=== PATIENT | female | born 1950 | race Caucasian/White ===

== ENCOUNTER 2024-08-12 11:15 | Day surgery (SDC) | payer MEDICARE ==
[2024-08-08 13:26] LABS: BASOPHILS % (AUTO) 0.5 % (0-1); EOSINOPHILS % (AUTO) 0.1 % (0-6); HEMATOCRIT 41.2 % (35.0-45.0); HEMOGLOBIN 13.6 g/dl (12.0-16.0); LYMPHOCYTES # (AUTO) 2.4 X10'3 (1.1-4.8); LYMPHOCYTES % (AUTO) 26.7 % (21-51); MEAN CORPUSCULAR HEMOGLOBIN 31.1 PG (27.0-31.0); MEAN CORPUSCULAR VOLUME 94.5 FL (78-98); MEAN PLATELET VOLUME 9.3 FL (7.4-10.4); MONOCYTES % (AUTO) 10.5 % (2-12); NEUTROPHILS # (AUTO) 5.7 X10'3 (1.8-7.7); NEUTROPHILS % (AUTO) 62.2 % (42-75); PLATELET COUNT 283 X10'3 (140-440); RED BLOOD COUNT 4.36 X10'6 (4.20-5.60); RED CELL DISTRIBUTION WIDTH 15.6 % (11.5-14.5); WHITE BLOOD COUNT 9.1 X10'3 (4.5-11.0)
[2024-08-08 13:37] LABS: APTT 26 SECONDS (22-32); INR 1.1 INR; PROTHROMBIN TIME 11.8 SECONDS (9.0-12.0)
[2024-08-08 13:44] LABS: ALBUMIN 3.6 G/DL (3.4-5.0); ANION GAP 6 (8-16); BLOOD UREA NITROGEN 27 MG/DL (7-18); BUN/CREATININE RATIO 28.7 (10.0-20.0); CALCIUM 8.6 MG/DL (8.5-10.1); CHLORIDE 105 MMOL/L (99-107); CHOL/HDL RATIO 2.5 (0.00-4.99); CHOLESTEROL 157 MG/DL (0-200); CREATININE 0.94 MG/DL (0.40-0.90); GLUCOSE 99 MG/DL (70-104); HDL CHOLESTEROL 63 MG/DL (35-60); LDL CHOLESTEROL 71 MG/DL (50-100); POTASSIUM 3.1 MMOL/L (3.5-5.1); SODIUM 144 MMOL/L (135-145); TRIGLYCERIDES 130 MG/DL (20-135); eGFR 58 ML/MIN
[2024-08-12] VITALS (9 sets, daily range): BP systolic 109–160; BP diastolic 55–90; PULSE 60–105; RESP 10–15; TEMP 98.3; O2SAT 95–98
[~2024-08-12] VITALS: Ht 160 cm; Wt 120.7 kg
[2024-08-12] MEDS ORDERED: CLOP75TA34 PO (11:45)
[2024-08-12] MEDS ORDERED: LOSA50TA64 PO (11:45)
[2024-08-12] MEDS ORDERED: EMPA10TA PO (11:45)
[2024-08-12] MEDS ORDERED: FURO40TA4 PO (11:45)
[2024-08-12] MEDS ORDERED: PANT40TA54 PO (11:45)
[2024-08-12] MEDS ORDERED: ROSU20TA98 PO (11:45)
[2024-08-12] MEDS ORDERED: APIX5TAB3 PO (11:45)
[2024-08-12] MEDS ORDERED: METO200T37 PO (11:45)
[2024-08-12] MEDS ORDERED: AMI200T PO (11:45)
[2024-08-12] MEDS: normal saline 1000ml 1,000 ML IV SCH (13:00)
[2024-08-12] MEDS: MIDAZolam 1mg/ml 10ml vial IV ONE (13:00)
[2024-08-12] MEDS: fentaNYL/PF 50MCG/1 ML 2ML syringe IV ONE (13:00)
== END 2024-08-12 14:35 | disposition home or self-care (01) ==
LOC: SSTAY O 11:15
PROVIDERS: ATTEND Student in an Organized Health Care Education/Training Program
DX: I48.19 Other persistent atrial fibrillation (principal); E78.5 Hyperlipidemia, unspecified; I50.9 Heart failure, unspecified; I25.10 Atherosclerotic heart disease of native coronary artery without angina pectoris; I49.5 Sick sinus syndrome; I11.0 Hypertensive heart disease with heart failure; E11.9 Type 2 diabetes mellitus without complications; J45.909 Unspecified asthma, uncomplicated; I35.0 Nonrheumatic aortic (valve) stenosis; I25.2 Old myocardial infarction; Z95.5 Presence of coronary angioplasty implant and graft
CPT/HCPCS: 36415; 80048; 80061; 85025; 85610; 85730; 92960; 93005; J2250; J3010; J7030

== ENCOUNTER 2025-03-20 11:31 | Day surgery (SDC) | payer MEDICARE ==
[~2025-03-20 11:31] MED LIST: AMIO200T76 PO; APIX5TAB3 PO; CLOP75TA34 PO; EMPA10TA PO; FURO40TA4 PO; LOSA50TA64 PO; METO200T37 PO; PANT40TA54 PO; ROSU20TA98 PO
[2025-03-20 12:03] LABS: MEAN PLATELET VOLUME 9.5 FL (7.4-10.4); RED CELL DISTRIBUTION WIDTH 15.0 % (11.5-14.5)
[2025-03-20 12:14] LABS: APTT 31 SECONDS (22-32); INR 1.2 INR
[2025-03-20 12:17] LABS: CHOL/HDL RATIO 5.1 (0.00-4.99); CREATININE 1.14 MG/DL (0.40-0.90); LDL CHOLESTEROL 174 MG/DL (50-100); TOTAL CARBON DIOXIDE 31.7 MMOL/L (24-32); eGFR 46 ML/MIN
[2025-03-23] MEDS ORDERED: BUDE10.3 INH (16:19)
[2025-03-23] MEDS ORDERED: POTA-206 PO (16:20)
[2025-03-24] MEDS ORDERED: atropine 0.1mg/ml 10ml syringe ONE (13:04)
[2025-03-24] MEDS ORDERED: fentaNYL/PF 50MCG/1 ML 2ML syringe ONE (13:04)
[2025-03-24] MEDS ORDERED: midazolam 1 mg/ML 2ml injection ONE (13:04)
== END 2025-03-20 23:59 | disposition home or self-care (01) ==
LOC: SSTAY O 11:31
PROVIDERS: ATTEND Student in an Organized Health Care Education/Training Program
DX: Z01.818 Encounter for other preprocedural examination (principal); I48.91 Unspecified atrial fibrillation; E78.5 Hyperlipidemia, unspecified; Z79.01 Long term (current) use of anticoagulants
CPT/HCPCS: 36415; 80048; 80061; 85025; 85610; 85730; J0461; J2250; J3010